=== PATIENT | male | born 2000 | race Caucasian/White ===

== ENCOUNTER 2019-01-20 23:15 | Emergency (ER) | payer BC ==
[~2019-01-20] VITALS: Ht 182.9 cm; Wt 72.7 kg
[2019-01-20 23:20] VITALS: TEMP 96.7
[2019-01-21 01:00] VITALS: BP 112/63; PULSE 57
== END 2019-01-21 01:02 | disposition home or self-care (01) ==
LOC: COL.ER 23:15
DX: T78.40XA Allergy, unspecified, initial encounter (principal)
CPT/HCPCS: J1100; J1200; J7030